=== PATIENT | female | born 1970 | race Caucasian/White ===

== ENCOUNTER 2019-06-28 16:05 | Emergency (ER) | payer BC ==
[2019-06-28 16:19] VITALS: BP 150/107; PULSE 95
--- NOTE | 2019-06-28 16:56 | EDM.PDOC ---
ED HPI GENERAL MEDICAL PROBLEM - General Chief Complaint: General Stated Complaint: LIGHTHEADED Time Seen by Provider: 06/28/19 16:07 Source of Information: Reports: Patient, RN Notes Reviewed History Limitations: Reports: No Limitations - History of Present Illness INITIAL COMMENTS - FREE TEXT/NARRATIVE: Patient is a 48-year-old female who presents to the ED for the evaluation of lightheadedness. The patient states that she was driving on her way back from [place], when she became suddenly lightheaded feeling. She immediately pulled over to the side of the road, she states that the dizziness subsided and she felt a little bit better so she drove some more, and had some more dizziness and lightheadedness so she pulled over again. She states this is how she got to her home town of [place] from [place]. The patient denies any sort of syncope. Patient does not relate any aggravating factors. The patient notes that she may have had dizziness like this once before, last year before problem. She states this is a one time occurrence. She further notes that she got a new prescription for contacts at that time and felt like bad swelling was going on. She notes that she has started taking Remeron for itching, and thought maybe this could be the cause of her issues as well. She states that with the episodes of lightheadedness, she feels as if she is moving but she is standing still, she notes that her mouth was dry with these episodes. The patient states she does not have any sort of unbalanced gait, but she feels generally weak and like her legs feel like spaghetti. She notes that she has had prior issues with low blood pressure, and that her blood pressure runs on the lower side and normal already. She is complaining of a slight headache after these episodes as well, this is in the back of her head and does radiate to the front of her head at times. She is wondering if she doesn't slightly panic when these episodes happen as well. - Related Data Allergies Allergy/AdvReac Type Severity Reaction Status Date / Time acetaminophen Allergy Hives Verified 06/28/19 16:16 [From Darvocet-N] amoxicillin Allergy Hives Verified 06/28/19 16:16 amoxicillin trihydrate Allergy Hives Verified 06/28/19 16:16 [From Augmentin] potassium clavulanate Allergy Hives Verified 06/28/19 16:16 [From Augmentin] propoxyphene napsylate Allergy Hives Verified 06/28/19 16:16 [From Darvocet-N] Home Meds: Home Meds Cholecalciferol (Vitamin D3) [Vitamin D3] 1,000 unit PO DAILY 11/24/14 [History] Social & Family History - Tobacco Use Smoking Status *Q: Never Smoker - Recreational Drug Use Recreational Drug Use: No ED ROS GENERAL - Review of Systems Review Of Systems: See Below Constitutional: Reports: Weakness (generalized). Denies: Fever, Chills, Diaphoresis HEENT: Denies: Vertigo, Vision Change Respiratory: Denies: Shortness of Breath, Cough Cardiovascular: Denies: Chest Pain Endocrine: Reports: No Symptoms GI/Abdominal: Denies: Abdominal Pain, Diarrhea, Nausea, Vomiting : Denies: No Symptoms Musculoskeletal: Reports: No Symptoms Skin: Reports: No Symptoms Neurological: Reports: Dizziness, Headache, Weakness (generalized). Denies: Confusion, Numbness, Pre-Existing Deficit, Seizure, Syncope, Tingling, Trouble Speaking, Difficulty Walking, Gait Disturbance Psychiatric: Reports: Anxiety Hematologic/Lymphatic: Reports: No Symptoms ED EXAM, GENERAL - Physical Exam Exam: See Below Exam Limited By: No Limitations General Appearance: Alert, WD/WN, No Apparent Distress Eye Exam: Bilateral Eye: EOMI, Normal Inspection, PERRL Ears: Normal External Exam Nose: Normal Inspection Throat/Mouth: Normal Inspection, Normal Lips, Normal Teeth, Normal Gums, Normal Oropharynx, Normal Voice, No Airway Compromise Head: Atraumatic, Normocephalic Neck: Normal Inspection, Supple, Non-Tender, Full Range of Motion Respiratory/Chest: No Respiratory Distress, Lungs Clear, Normal Breath Sounds, No Accessory Muscle Use, Chest Non-Tender Cardiovascular: Normal Peripheral Pulses, Regular Rate, Rhythm, No Murmur Peripheral Pulses: 3+: Radial (L), Radial (R) GI/Abdominal: Normal Bowel Sounds, Soft, Non-Tender, No Distention, No Mass Extremities: Normal Inspection, Normal Capillary Refill Neurological: Alert, Oriented, Normal Cognition, No Motor/Sensory Deficits Psychiatric: Normal Affect, Normal Mood Skin Exam: Warm, Dry, Intact, Normal Color, No Rash EKG INTERPRETATION EKG Date: 06/28/19 Time: 16:01 Rhythm: NSR Rate (Beats/Min): 89 [place]: Normal P-Wave: Present QRS: Normal ST-T: Normal QT: Normal Comparison: NA - No Prior EKG EKG Interpretation Comments: Reviewed by Dr. Kidd and myself. No acute ischemic changes noted. Course - Vital Signs Last Recorded V/S: Last Vital Signs Temp 98.5 F 06/28/19 16:17 Pulse 95 06/28/19 16:17 Resp 16 06/28/19 16:17 BP 150/107 H 06/28/19 16:17 Pulse Ox 98 06/28/19 16:17 Orthostatic Blood Pressure [ 133/108 Standing] Orthostatic Blood Pressure [ 126/88 Supine] - Orders/Labs/Meds Orders: Active Orders 24 hr Category Date Time Status EKG Documentation Completion [RC] ASDIRECTED Care 06/28/19 16:19 Ordered Orthostatic Vital Signs [RC] ASDIRECTED Care 06/28/19 16:20 Ordered EKG 12 Lead [EK] Stat Ther 06/28/19 16:19 Ordered Labs: Laboratory Tests 06/28/19 06/28/19 06/28/19 Range/Units 16:47 16:47 16:47 WBC 6.10 (3.98-10.04) K/mm3 RBC 4.04 (3.98-5.22) M/mm3 Hgb 13.0 (11.2-15.7) gm/dl Hct 38.5 (34.1-44.9) % MCV 95.3 H (79.4-94.8) fl MCH 32.2 (25.6-32.2) pg MCHC 33.8 (32.2-35.5) g/dl RDW Std Deviation 41.7 (36.4-46.3) fL Plt Count 158 L (182-369) K/mm3 MPV 9.8 (9.4-12.3) fl Neut % (Auto) 64.2 (34.0-71.1) % Lymph % (Auto) 25.1 (19.3-51.7) % [place] % (Auto) 6.9 (4.7-12.5) % Eos % (Auto) 3.0 (0.7-5.8) Baso % (Auto) 0.8 (0.1-1.2) % Neut # (Auto) 3.92 (1.56-6.13) K/mm3 Lymph # (Auto) 1.53 (1.18-3.74) K/mm3 [place] # (Auto) 0.42 H (0.24-0.36) K/mm3 Eos # (Auto) 0.18 (0.04-0.36) K/mm3 Baso # (Auto) 0.05 (0.01-0.08) K/mm3 Sodium 140 (136-145) mEq/L Potassium 3.7 (3.5-5.1) mEq/L Chloride 107 (98-107) mEq/L Carbon Dioxide 28 (21-32) mEq/L Anion Gap 8.7 (5-15) BUN 14 (7-18) mg/dL Creatinine 0.6 (0.55-1.02) mg/dL Est Cr Clr Drug Dosing TNP Estimated GFR (MDRD) > 60 (>60) mL/min BUN/Creatinine Ratio 23.3 H (14-18) Glucose 94 (74-106) mg/dL Calcium 9.0 (8.5-10.1) mg/dL Total Bilirubin 0.3 (0.2-1.0) mg/dL AST 13 L (15-37) U/L ALT 20 (14-59) U/L Alkaline Phosphatase 72 (46-116) U/L Troponin I < 0.017 (0.00-0.056) ng/mL Total Protein 6.4 (6.4-8.2) g/dl Albumin 3.7 (3.4-5.0) g/dl Globulin 2.7 gm/dL Albumin/Globulin Ratio 1.4 (1-2) TSH 3rd Generation 3.324 (0.358-3.74) uIU/mL HCG, Quant mIU/mL 06/28/19 Range/Units 16:47 WBC (3.98-10.04) K/mm3 RBC (3.98-5.22) M/mm3 Hgb (11.2-15.7) gm/dl Hct (34.1-44.9) % MCV (79.4-94.8) fl MCH (25.6-32.2) pg MCHC (32.2-35.5) g/dl RDW Std Deviation (36.4-46.3) fL Plt Count (182-369) K/mm3 MPV (9.4-12.3) fl Neut % (Auto) (34.0-71.1) % Lymph % (Auto) (19.3-51.7) % [place] % (Auto) (4.7-12.5) % Eos % (Auto) (0.7-5.8) Baso % (Auto) (0.1-1.2) % Neut # (Auto) (1.56-6.13) K/mm3 Lymph # (Auto) (1.18-3.74) K/mm3 [place] # (Auto) (0.24-0.36) K/mm3 Eos # (Auto) (0.04-0.36) K/mm3 Baso # (Auto) (0.01-0.08) K/mm3 Sodium (136-145) mEq/L Potassium (3.5-5.1) mEq/L Chloride (98-107) mEq/L Carbon Dioxide (21-32) mEq/L Anion Gap (5-15) BUN (7-18) mg/dL Creatinine (0.55-1.02) mg/dL Est Cr Clr Drug Dosing Estimated GFR (MDRD) (>60) mL/min BUN/Creatinine Ratio (14-18) Glucose (74-106) mg/dL Calcium (8.5-10.1) mg/dL Total Bilirubin (0.2-1.0) mg/dL AST (15-37) U/L ALT (14-59) U/L Alkaline Phosphatase (46-116) U/L Troponin I (0.00-0.056) ng/mL Total Protein (6.4-8.2) g/dl Albumin (3.4-5.0) g/dl Globulin gm/dL Albumin/Globulin Ratio (1-2) TSH 3rd Generation (0.358-3.74) uIU/mL HCG, Quant 1.0 mIU/mL - Re-Assessments/Exams Free Text/Narrative Re-Assessment/Exam: 06/28/19 17:01 Patient presents to the ED for the evaluation of intermittent sudden onset dizziness. Etiology of this is very unclear at this time, did order a EKG, trop , TSH, CBC, CMP, hCG Quant (lab requested Quant d/t hemolyzation issues), Orthostatic vital signs, 06/28/19 17:40 Patient's labs have been resulted, and there are no acute abnormality is identified at today's visit. TSH is within normal limits, troponin is negative , hCG Quant is 1.0, so he essentially negative. At this time laboratory evaluation does not give us any sort of clue as to any metabolic abnormalities that may have been causing dizziness. EKG was also within normal limits. I will have the patient stop the Remeron, and see if this doesn't help resolve some the symptoms. Of note the patient believes she does have increased stress in her life, due to multiple family issues. I will recommend that she try to decrease stress the best she can, to see if this also helps relieve some of the symptoms. Departure - Departure Time of Disposition: 17:42 Disposition: Home, Self-Care 01 Condition: Fair Clinical Impression: Dizziness - Discharge Information *PRESCRIPTION DRUG MONITORING PROGRAM REVIEWED*: No *COPY OF PRESCRIPTION DRUG MONITORING REPORT IN PATIENT JAY: No Instructions: Dizziness, [id number] Forms: ED Department Discharge Additional Instructions: You were evaluated in the ER today for your dizziness. Your laboratory evaluation and EKG were all within normal limits, there were no acute abnormalities identified at today's visit that could explain the cause of your dizziness. It may be likely that your dizziness is due to the medication Remeron that you have been taking, recommend that you stop taking this to see if this helps relieve some your symptoms. Depending on your dose and length of usage, you may need to taper off this medication. One of the more common side effects of Remeron is dizziness and dry mouth. Please return to the ED if your symptoms change or worsen. - My Orders Last 24 Hours: My Active Orders 06/28/19 16:19 EKG Documentation Completion [RC] ASDIRECTED EKG 12 Lead [EK] Stat 06/28/19 16:20 Orthostatic Vital Signs [RC] ASDIRECTED - Assessment/Plan Last 24 Hours: My Active Orders 06/28/19 16:19 EKG Documentation Completion [RC] ASDIRECTED EKG 12 Lead [EK] Stat 06/28/19 16:20 Orthostatic Vital Signs [RC] ASDIRECTED
== END 2019-06-28 18:00 | disposition home or self-care (01) ==
LOC: JD.ED 16:05
DX: R42 Dizziness and giddiness (principal); Z88.0 Allergy status to penicillin; Z88.6 Allergy status to analgesic agent; Z88.8 Allergy status to other drugs, medicaments and biological substances
CPT/HCPCS: 36415; 80053; 84443; 84484; 84702; 85025; 93005; 99284-25

== ENCOUNTER 2021-05-15 14:55 | Emergency (ER) | payer BC ==
[2021-05-15] MEDS ORDERED: Lidocaine 1% 10 ML MDV INJECT ONE (14:58)
--- NOTE | 2021-05-15 15:56 | EDM.PDOC ---
ED HPI GENERAL MEDICAL PROBLEM - General Chief Complaint: Upper Extremity Injury/Pain Stated Complaint: FINGER LAC Time Seen by Provider: 05/15/21 14:58 Source of Information: Reports: Patient History Limitations: Reports: No Limitations - History of Present Illness INITIAL COMMENTS - FREE TEXT/NARRATIVE: The patient presents with right middle finger infection. This has been going on for about a week. There was no injury to the finger. She has no fever or chills. She does have lots of pain. Onset: Gradual Duration: Week(s): Location: Reports: Upper Extremity, Right (middle finger) Quality: Reports: Sharp Severity: Moderate Improves with: Reports: Immobilization Worsens with: Reports: Movement Associated Symptoms: Reports: No Other Symptoms - Related Data Allergies Allergy/AdvReac Type Severity Reaction Status Date / Time acetaminophen Allergy Hives Verified 11/12/20 16:06 [From Darvocet-N] amoxicillin Allergy Hives Verified 11/12/20 16:06 amoxicillin trihydrate Allergy Hives Verified 11/12/20 16:06 [From Augmentin] potassium clavulanate Allergy Hives Verified 11/12/20 16:06 [From Augmentin] propoxyphene napsylate Allergy Hives Verified 11/12/20 16:06 [From Darvocet-N] Home Meds: Home Meds Cholecalciferol (Vitamin D3) [Vitamin D3] 1,000 unit PO DAILY 11/24/14 [History] Review of Systems - Review of Systems Review Of Systems: See Below Constitutional: Reports: No Symptoms Eyes: Reports: No Symptoms Ears: Reports: No Symptoms Nose: Reports: No Symptoms Mouth/Throat: Reports: No Symptoms Respiratory: Reports: No Symptoms Cardiovascular: Reports: No Symptoms ED EXAM, GENERAL - Physical Exam Exam: See Below Exam Limited By: No Limitations General Appearance: Alert, No Apparent Distress Ears: Normal External Exam Nose: Normal Inspection Extremities: Other (Paronychia to the right middle finger with erythema and moderate edema) ED TRAUMA EXTREMITY PROCEDURES - I&D Site: Right middle finger Skin Prep: Other (chlorprep) Local Anesthesia: Lidocaine: 1% Plain Area Incised With: 11 Blade Drainage: Purulent, Large Amount Probed to Break Up Loculations: No Complications: No Course - Orders/Labs/Meds Meds: Medications Discontinued Medications Generic Name Dose Route Start Last Admin Trade Name Freq PRN Reason Stop Dose Admin Lidocaine HCl 10 ml 05/15/21 14:58 Lidocaine 1% 10 Ml Mdv INJECT 05/15/21 14:59 ONETIME ONE - Re-Assessments/Exams Free Text/Narrative Re-Assessment/Exam: 05/15/21 15:56 Consent was obtained and I used 1% lidocaine to do a ring block on the finger. I then opened up the paronychia. She is already on keflex. I will have her keep taking that. Departure - Departure Time of Disposition: 16:00 Disposition: Home, Self-Care 01 Condition: Good Clinical Impression: Paronychia - Discharge Information *PRESCRIPTION DRUG MONITORING PROGRAM REVIEWED*: Not Applicable *COPY OF PRESCRIPTION DRUG MONITORING REPORT IN PATIENT JAY: Not Applicable Referrals: PCP,None [Primary Care Provider] - Forms: ED Department Discharge Additional Instructions: Keep taking the keflex 4 times per day. Soak your finger in warm soapy water two times per day and put antibiotics after. Please return if you are worse.
== END 2021-05-15 17:20 | disposition home or self-care (01) ==
LOC: JD.ED 14:55
DX: L03.011 Cellulitis of right finger (principal); Z88.6 Allergy status to analgesic agent; Z88.0 Allergy status to penicillin; Z88.1 Allergy status to other antibiotic agents
CPT/HCPCS: 10060; 99282; 99283-25